=== PATIENT | female | born 1945 | race Caucasian/White ===

== ENCOUNTER 2025-04-12 21:17 | Emergency (ER) | payer MEDICARE, OTHER ==
[2025-04-12] MEDS ORDERED: Acetaminophen/Codeine 30-300mg Tablet ONE (21:30)
== END 2025-04-12 22:31 | disposition home or self-care (01) ==
LOC: BURERS 21:17
DX: S72.051A Unspecified fracture of head of right femur, initial encounter for closed fracture (principal); I10 Essential (primary) hypertension; Z87.891 Personal history of nicotine dependence; W01.0XXA Fall on same level from slipping, tripping and stumbling without subsequent striking against object, initial encounter
CPT/HCPCS: 99283